=== PATIENT | male | born 1940 | race Caucasian/White ===

== ENCOUNTER 2016-12-09 22:49 | Inpatient (IN) | payer MEDICARE ==
[~2016-12-09] VITALS: Ht 185.4 cm; Wt 81.2 kg
[2016-12-09 23:41] LABS: HEMATOCRIT 42.1 % (39.2-51.8); HEMOGLOBIN 14.3 g/dL (13.7-18.0); WHITE BLOOD COUNT 8.4 x10^3/uL (3.4-10)
[2016-12-09 23:52] LABS: BLOOD UREA NITROGEN 14 mg/dL (7-18)
[2016-12-09 23:56] LABS: ASPARTATE AMINO TRANSFERASE 43 U/L (15-37)
[2016-12-10] MEDS ORDERED: ONDANSETRON 2MG/ML, 2ML IVPush ONE
[2016-12-10] MEDS ORDERED: SODIUM CHLORIDE FLUSH 10ML SYR IVF ONE
[2016-12-10] MEDS ORDERED: SODIUM CHLORIDE 0.9% 1,000 ML IV ONE (00:22)
[2016-12-10] MEDS ORDERED: ONDANSETRON 2MG/ML, 2ML ONE (00:32)
[2016-12-10] MEDS ORDERED: MORPHINE SULFATE 4 MG/ML, 1ML ONE ×2 (00:32→01:31)
[2016-12-10] MEDS: MORPHINE SULFATE 4 MG/ML, 1ML IVPush PRN ×2 (00:37→01:35)
[2016-12-10] MEDS ORDERED: GABA300C10 PO (01:37)
[2016-12-10] MEDS ORDERED: HALOPERIDOL 1 MG TABLET PO PRN (02:00)
[2016-12-10] MEDS ORDERED: ONDANSETRON 2MG/ML, 2ML IVPush PRN (02:00)
[2016-12-10 02:53] VITALS: BP 144/76
[2016-12-10] MEDS: ENOXAPARIN 40 MG/0.4 ML SQ SCH (03:11)
[2016-12-10] MEDS: SODIUM CHLORIDE 0.9% 1,000 ML IV SCH ×2 (03:11→13:53)
[2016-12-10 07:39] VITALS: BP 102/60
[2016-12-10 08:22] LABS: BLOOD UREA NITROGEN 11 mg/dL (7-18)
[2016-12-10] MEDS: SODIUM CHLORIDE FLUSH 10ML SYR IVF SCH ×2 (08:44→20:36)
[2016-12-10] MEDS: PANTOPRAZOLE 40 MG IV IVPush SCH (08:44)
[2016-12-10] MEDS ORDERED: MAGNESIUM SULFATE PMX 2GM/50ML 50 ML IV ONE (10:30)
[2016-12-10] MEDS ORDERED: morphine SULFATE 10 MG/ML, 1ML IVPush STA (10:30)
[2016-12-10 10:55] VITALS: BP 156/75
[2016-12-10] MEDS ORDERED: POTASSIUM CHLORIDE 20 MEQ in SODIUM CHLORIDE 0.9% 250 ML IV ONE (11:00)
[2016-12-10 11:02] LABS: IS PT STATUS REG ER OR PRE ER? NO
[2016-12-10 12:15] VITALS: BP 127/80
[2016-12-10] MEDS ORDERED: MAALOX/HYOSCYAMINE/LIDOCAINE 45 ML BTL PO ONE (13:00)
[2016-12-10 16:26] LABS: IS PT STATUS REG ER OR PRE ER? NO
[2016-12-10 20:00] VITALS: BP 118/73
[2016-12-10] MEDS ORDERED: PHENOL THROAT SPRAY BOTTLE MM PRN (20:30)
[2016-12-10 22:59] LABS: IS PT STATUS REG ER OR PRE ER? NO
[2016-12-11 01:43] VITALS: BP 147/90
[2016-12-11] MEDS: ENOXAPARIN 40 MG/0.4 ML SQ SCH (03:54)
[2016-12-11 05:32] LABS: HEMATOCRIT 37.5 % (39.2-51.8); HEMOGLOBIN 12.7 g/dL (13.7-18.0); WHITE BLOOD COUNT 7.6 x10^3/uL (3.4-10)
[2016-12-11 05:41] LABS: BLOOD UREA NITROGEN 10 mg/dL (7-18)
[2016-12-11 05:45] LABS: ASPARTATE AMINO TRANSFERASE 37 U/L (15-37)
[2016-12-11] MEDS: SODIUM CHLORIDE 0.9% 1,000 ML IV SCH (06:22)
[2016-12-11] MEDS: SODIUM CHLORIDE FLUSH 10ML SYR IVF SCH ×2 (07:20→22:08)
[2016-12-11] MEDS: PANTOPRAZOLE 40 MG IV IVPush SCH (07:20)
[2016-12-11 08:04] VITALS: BP 144/86
[2016-12-11] MEDS ORDERED: [UNRECOGNIZED DRUG - CODE] PO (12:40)
[2016-12-11] MEDS ORDERED: POLY17PO3 PO (13:04)
[2016-12-11] MEDS ORDERED: CHOL20002 PO (13:04)
[2016-12-11] MEDS ORDERED: BUDE10.2 INH (13:04)
[2016-12-11] MEDS ORDERED: GUAI200T3 PO (13:04)
[2016-12-11] MEDS ORDERED: DOCU100T3 PO (13:04)
[2016-12-11] MEDS ORDERED: TRAZ150T62 PO (13:04)
[2016-12-11] MEDS ORDERED: PANT40TA5 PO (13:04)
[2016-12-11] MEDS ORDERED: ALBU8.5H8 INH (13:04)
[2016-12-11 14:12] VITALS: BP 133/71
[2016-12-11 19:36] VITALS: BP 125/82
[2016-12-11] MEDS: PANTOPROZOLE 40MG TABLET PO SCH (22:08)
[2016-12-11] MEDS: LORazepam 0.5MG TABLET PO PRN (22:08)
[2016-12-12 02:05] VITALS: BP 145/76
[2016-12-12] MEDS: LORazepam 0.5MG TABLET PO PRN ×2 (04:11→22:39)
[2016-12-12] MEDS: ENOXAPARIN 40 MG/0.4 ML SQ SCH (05:58)
[2016-12-12 07:20] VITALS: BP 128/79
[2016-12-12] MEDS ORDERED: OMEPRAZOLE 20 MG CAPSULE.DR PO SCH (07:30)
[2016-12-12] MEDS: PANTOPROZOLE 40MG TABLET PO SCH ×2 (08:56→22:31)
[2016-12-12] MEDS: SODIUM CHLORIDE FLUSH 10ML SYR IVF SCH ×2 (08:56→22:30)
[2016-12-12 14:53] VITALS: BP 131/64
[2016-12-12] MEDS ORDERED: POLYETHYLENE GLYCOL 17 GM PACKET PO PRN (17:00)
[2016-12-12 19:58] VITALS: BP 146/80
[2016-12-13 01:58] VITALS: BP 126/53
[2016-12-13] MEDS: ENOXAPARIN 40 MG/0.4 ML SQ SCH (06:08)
[2016-12-13 07:30] VITALS: BP 138/58
[2016-12-13] MEDS: SODIUM CHLORIDE FLUSH 10ML SYR IVF SCH ×2 (09:25→20:33)
[2016-12-13] MEDS: PANTOPROZOLE 40MG TABLET PO SCH ×2 (09:25→20:33)
[2016-12-13 14:25] VITALS: BP 131/75
[2016-12-13 19:57] VITALS: BP 148/70
[2016-12-13] MEDS: LORazepam 0.5MG TABLET PO PRN (20:36)
[2016-12-14 02:47] VITALS: BP 154/87
[2016-12-14] MEDS: ENOXAPARIN 40 MG/0.4 ML SQ SCH (05:41)
[2016-12-14] MEDS: SODIUM CHLORIDE FLUSH 10ML SYR IVF SCH ×2 (08:00→21:00)
[2016-12-14 08:15] VITALS: BP 137/74
[2016-12-14] MEDS: PANTOPROZOLE 40MG TABLET PO SCH ×2 (09:09→21:25)
[2016-12-14 13:45] VITALS: BP 132/80
[2016-12-14 20:00] VITALS: BP 130/71
[2016-12-14] MEDS: LORazepam 0.5MG TABLET PO PRN (22:34)
[2016-12-15 02:00] VITALS: BP 148/78
[2016-12-15] MEDS: ENOXAPARIN 40 MG/0.4 ML SQ SCH (05:50)
[2016-12-15 08:16] VITALS: BP 130/77
[2016-12-15] MEDS: PANTOPROZOLE 40MG TABLET PO SCH ×2 (08:25→20:46)
[2016-12-15] MEDS: SODIUM CHLORIDE FLUSH 10ML SYR IVF SCH ×2 (08:26→20:46)
[2016-12-15 14:42] VITALS: BP 143/77
[2016-12-15 20:00] VITALS: BP 147/74
[2016-12-15] MEDS: LORazepam 0.5MG TABLET PO PRN (20:51)
[2016-12-16 02:00] VITALS: BP 127/66
[2016-12-16] MEDS: ENOXAPARIN 40 MG/0.4 ML SQ SCH (05:17)
[2016-12-16 07:51] VITALS: BP 130/80
[2016-12-16] MEDS: PANTOPROZOLE 40MG TABLET PO SCH (09:27)
[2016-12-16] MEDS: SODIUM CHLORIDE FLUSH 10ML SYR IVF SCH (09:28)
[2016-12-16 14:10] VITALS: BP 147/73
== END 2016-12-16 18:27 | disposition home or self-care (01) | DRG 158 ==
LOC: ED 23:59 → EDIP 12-10 01:42 → 4NOR 12-10 02:45 → 4WST 12-10 11:53
PROVIDERS: ADMIT Internal Medicine; ATTEND Internal Medicine
DX: K13.70 Unspecified lesions of oral mucosa (principal); E87.2 Acidosis; R13.10 Dysphagia, unspecified; E87.8 Other disorders of electrolyte and fluid balance, not elsewhere classified; E87.1 Hypo-osmolality and hyponatremia; J44.9 Chronic obstructive pulmonary disease, unspecified; R62.7 Adult failure to thrive; E87.6 Hypokalemia; G31.84 Mild cognitive impairment of uncertain or unknown etiology; J32.9 Chronic sinusitis, unspecified; K21.9 Gastro-esophageal reflux disease without esophagitis; Z87.891 Personal history of nicotine dependence; Z90.49 Acquired absence of other specified parts of digestive tract
CPT/HCPCS: 36415; 70360; 70450; 74020; 76700; 80048; 80053; 81003; 82962; 83690; 83735; 84100; 84443; 84484; 85025; 85379; 87324; 93005; 96361; 96374; 96375; 96376; J1650; J2405; J3480; 92523-GN; C9113; J2270; J3475; J7030; J7050